=== PATIENT | female | born 1995 | race Caucasian/White ===

== ENCOUNTER 2021-10-11 17:50 | Outpatient (CLI) | payer OTHER | END 2021-10-11 21:24 | disposition home or self-care (01) | LOC: GENOP 17:50 | DX: O47.03 False labor before 37 completed weeks of gestation, third trimester (principal); O99.013 Anemia complicating pregnancy, third trimester; D64.9 Anemia, unspecified; Z3A.30 30 weeks gestation of pregnancy | CPT/HCPCS: 81001; 96365; 96366; J7120 ==